=== PATIENT | male | born 1965 | race Caucasian/White ===

== ENCOUNTER 2023-12-11 10:15 | Inpatient (IN) | payer BC ==
[2023-12-11 10:47] VITALS: BMI 31.5
[2023-12-11] MEDS ORDERED: MAG HYDROX/AL HYDROX/SIMETH 30 ML UNIT-DOSE CUP PO PRN (11:05)
[2023-12-11] MEDS ORDERED: ACETAMINOPHEN 325 MG TABLET (FP) PO PRN (11:05)
[2023-12-11] MEDS ORDERED: NALOXONE HCL 0.4 MG/ML VIAL IM PRN (11:05)
[2023-12-11] MEDS ORDERED: POLYETHYLENE GLYCOL (HEALTHYLAX) 3350 17 GM PACKET PO PRN (11:05)
[2023-12-11] MEDS ORDERED: DICYCLOMINE HCL 10 MG CAPSULE PO PRN (11:05)
[2023-12-11] MEDS ORDERED: BENZONATATE 200 MG CAPSULE PO PRN (11:05)
[2023-12-11] MEDS ORDERED: IBUPROFEN 400 MG TABLET (FP) PO PRN (11:05)
[2023-12-11] MEDS ORDERED: guaiFENesin 600 MG TABLET.ER (FP) PO PRN (11:05)
[2023-12-11] MEDS ORDERED: LOPERAMIDE HCL 2 MG CAPSULE PO PRN (11:05)
[2023-12-11] MEDS ORDERED: MAGNESIUM HYDROX 2400MG/30ML ORAL SUSPENSION 30 ML CUP PO PRN (11:05)
[2023-12-11] MEDS ORDERED: BISMUTH SUBSALICYLATE 262 MG/15 ML BTL PO PRN (11:05)
[2023-12-11] MEDS ORDERED: BENZOCAINE/MENTHOL (CHLORASEPTIC ) LOZENGE MM PRN (11:05)
[2023-12-11] MEDS ORDERED: NALOXONE (NARCAN) HCL 4 MG/0.1 ML SPRAY NS PRN (11:05)
[2023-12-11] MEDS ORDERED: ONDANSETRON *ODT* 4 MG TABLET SL PRN (11:05)
[2023-12-11] MEDS ORDERED: PRENATAL VITAMINS W/ FOLIC ACID TABLET (FP) PO ONE (12:08)
[2023-12-11] MEDS ORDERED: diazePAM 5 MG TABLET ONE (12:08)
[2023-12-11] MEDS ORDERED: NICOTINE 21 MG/24 HOURS TOPICAL PATCH ONE (12:08)
[2023-12-11] MEDS: NICOTINE 21 MG/24 HOURS TOPICAL PATCH TD SCH (12:12)
[2023-12-11] MEDS: diazePAM 5 MG TABLET PO ONE (12:13)
[2023-12-11] MEDS: PRENATAL VITAMINS W/ FOLIC ACID TABLET (FP) PO SCH (12:13)
[2023-12-11] MEDS: hydrOXYzine PAMOATE 25 MG CAPSULE (FP) PO PRN (17:12)
[2023-12-11] MEDS: diazePAM 5 MG TABLET PO SCH (17:13)
[2023-12-11] MEDS: MELATONIN 5 MG TABLETS PO SCH (22:02)
[2023-12-11] MEDS: THIAMINE 100 MG TABLET PO SCH (22:02)
[2023-12-12] MEDS ORDERED: methaDONE HCL 40 MG DISPERSABLE TABLET PO SCH (06:30)
[2023-12-12 11:42] LABS: HEMATOCRIT 35.5 % (35.4-49); HEMOGLOBIN 11.7 GM/dL (11.7-16.9); MCH 26.5 pg (25.7-33.7); MCHC 32.9 g/dl (32.0-35.9); MEAN CELL VOLUME 80.4 fl (80-96); MEAN PLT VOLUME 10.2 fl (7.5-11.1); PLATELET COUNT 149 10^3/uL (134-434); RBC 4.42 M/mm3 (4.00-5.60); RDW 14.6 % (11.9-15.9); WHITE BLOOD COUNT 5.1 K/mm3 (4.0-10.0)
[2023-12-12 11:53] LABS: CHLORIDE 104 mmol/L (98-107); SODIUM 138 mmol/L (136-145)
[2023-12-12 12:05] LABS: BLOOD UREA NITROGEN 18.2 mg/dL (7-18); CALCIUM 9.1 mg/dL (8.5-10.1)
[2023-12-12 12:06] LABS: ALBUMIN 3.4 g/dl (3.4-5.0); ANION GAP 7 mmol/L (4-13); CO2 27 mmol/L (21-32); GLUCOSE,RANDOM 128 mg/dL (74-106)
[2023-12-12 12:09] LABS: SGOT/AST 11 U/L (15-37); SGPT/ALT 18 U/L (13-61)
[2023-12-12 12:10] LABS: BILIRUBIN,TOTAL 0.2 mg/dL (0.2-1)
[2023-12-12 12:11] LABS: TOT PROT 6.7 g/dl (6.4-8.2)
[2023-12-12 12:12] LABS: ALK PHOS 128 U/L (45-117)
[2023-12-13] MEDS: diazePAM 5 MG TABLET PO SCH (05:41)
[2023-12-13] MEDS: IBUPROFEN 600 MG TABLET (FP) PO PRN (05:44)
[2023-12-13] MEDS: METHOCARBAMOL 500 MG TABLET PO PRN (09:35)
[2023-12-13] MEDS: amLODIPine BESYLATE 5 MG TABLET (FP) PO SCH (14:40)
[2023-12-13] MEDS: PENICILLIN G BENZATHINE 2,400,000 UNIT/4 ML PFS IM ONE (16:06)
[2023-12-13] MEDS: diazePAM 5 MG TABLET PO PRN (17:10)
[2023-12-14] MEDS: diazePAM 5 MG TABLET PO SCH (05:35)
[2023-12-15] MEDS: diazePAM 5 MG TABLET PO ONE (05:21)
[2023-12-15 09:24] VITALS: BP 115/64; PULSE 80; RESP 20; TEMP 98
== END 2023-12-15 09:36 | disposition home or self-care (01) | DRG 773 ==
LOC: YASAS 10:15 → Y3N 12:29
PROVIDERS: ADMIT Allergy & Immunology; ATTEND Surgery
PROC: HZ2ZZZZ Detoxification Services for Substance Abuse Treatment (ICD-10-PCS; principal; 2023-12-11)
DX: F13.230 Sedative, hypnotic or anxiolytic dependence with withdrawal, uncomplicated (principal); F11.20 Opioid dependence, uncomplicated; F17.210 Nicotine dependence, cigarettes, uncomplicated; F41.9 Anxiety disorder, unspecified; Z85.72 Personal history of non-Hodgkin lymphomas; Z90.81 Acquired absence of spleen; Z86.19 Personal history of other infectious and parasitic diseases
CPT/HCPCS: 36415; 73030-TC-LT-FY; 80053; 80305; 80307; 85027; 86593; 86780; 93005; 93010